=== PATIENT | male | born 1935 | race Caucasian/White ===

== ENCOUNTER → 2019-02-28 | Outpatient (CLI) | payer MEDICARE, OTHER ==
--- NOTE | 2019-02-28 13:51 | 2DMMODE ---
[place] [address] 2 D/M-MODE ECHOCARDIOGRAM Name: SADIE ALEXANDRA Room: [facility]#: [id number] Admission: 02/28/19 Attend Phys: Zane Evans MD Discharge: Date of : 31 Date of Service: 02/28/19 1351 Report #: [id number] THIS REPORT FOR: //name// APPROVED REPORT Study performed: 02/28/2019 10:27:01 EXAM: Comprehensive 2D, Doppler, and color-flow Echocardiogram Patient Location: Out-Patient BSA: 2.02 HR: 84 bpm BP: 105/58 mmHg Other Information Study Quality: Good Indications Dyspnea Peripheral Edema Elevated BNP 2D Dimensions IVSd: 16.05 (7-11mm) LVOT Diam: 20.40 (18-24mm) LVDd: 40.59 mm PWd: 15.79 (7-11mm) Ascending Ao: 32.27 (22-36mm) LVDs: 26.18 (25-40mm) Aortic Root: 28.99 mm Volumes Left Atrial Volume (Systole) LA ESV Index: 35.20 mL/m2 Aortic Valve AoV Peak Lakhwinder.: 1.20 m/s AO Peak Gr.: 5.80 mmHg LVOT Max P.07 mmHg AO Mean Gr.: 2.84 mmHg LVOT Mean P.52 mmHg LVOT Max V: 0.52 m/s AO V2 VTI: 20.58 cm LVOT Mean V: 0.33 m/s TRE (VTI): 1.80 cm2 LVOT V1 VTI: 11.31 cm Mitral Valve MV Decel. Time: 190.62 ms MV E Max Lakhwinder.: 0.74 m/s MV PHT: 55.28 [place] [address] 2 D/M-MODE ECHOCARDIOGRAM Name: SADIE ALEXANDRA Room: [facility]#: [id number] Admission: 02/28/19 Attend Phys: Zane Evans MD Discharge: Date of : 31 Date of Service: 02/28/19 1351 Report #: [id number] MVA (PHT): 3.98 cm2 TDI E/Lateral E': 9.25 E/Medial E': 12.33 Medial E' Lakhwinder.: 0.06 m/s Lateral E' Lakhwinder.: 0.08 m/s Pulmonary Valve PV Peak Lakhwinder.: 0.76 m/s PV Peak Gr.: 2.33 mmHg Tricuspid Valve RAP Estimate: 5.00 mmHg TR Peak Gr.: 19.36 mmHg RVSP: 24.36 mmHg PA Pressure: 24.36 mmHg Left Ventricle The left ventricle is normal size. There is normal LV segmental wall motion. Moderate concentric left ventricular hypertrophy. Left ventricular systolic function is normal. The left ventricular ejection fraction is within the normal range. LVEF is 50-55%. This study is not technically sufficient to allow evaluation of the LV diastolic function due to atrial fibrillation. Right Ventricle The right ventricle is normal size. The right ventricular systolic function is normal. Atria Left atrium is moderately dilated. Right atrium is mildly dilated. Aortic Valve Aortic valve is mildly calcified. No aortic regurgitation is present. There is no aortic valvular stenosis. Mitral Valve The mitral valve is normal in structure. Trace mitral regurgitation. No evidence of mitral valve stenosis. Tricuspid Valve The tricuspid valve is normal in structure. Mild tricuspid regurgitation. Pulmonic Valve The pulmonary valve is normal in structure. Mild [place] [address] 2 D/M-MODE ECHOCARDIOGRAM Name: SADIE ALEXANDRA Room: [facility]#: [id number] Admission: 02/28/19 Attend Phys: Zane Evans MD Discharge: Date of : 31 Date of Service: 02/28/19 1351 Report #: [id number] Great Vessels The aortic root is normal in size. IVC is normal in size and collapses >50% with inspiration. Pericardium There is no pericardial effusion. <Conclusion> The left ventricle is normal size. Moderate concentric left ventricular hypertrophy. Left ventricular systolic function is normal. The left ventricular ejection fraction is within the normal range. LVEF is 50-55%. This study is not technically sufficient to allow evaluation of the LV diastolic function due to atrial fibrillation. The right ventricle is normal size. Left atrium is moderately dilated. Right atrium is mildly dilated. Aortic valve is mildly calcified. No aortic regurgitation is present. There is no aortic valvular stenosis. The mitral valve is normal in structure. Trace mitral regurgitation. The tricuspid valve is normal in structure. Mild tricuspid regurgitation. IVC is normal in size and collapses >50% with inspiration. There is no pericardial effusion. There is normal LV segmental wall motion. <ELECTRONICALLY SIGNED> By: Zack Palomares MD, FACC 02/28/19 1351 1351 1351 Zack Palomares MD, FACC /INF
== END ==
LOC: M.CRD
DX: I08.8 Other rheumatic multiple valve diseases (principal); R06.00 Dyspnea, unspecified; R60.0 Localized edema; R79.89 Other specified abnormal findings of blood chemistry